=== PATIENT | male | born 1985 | race Caucasian/White ===

== ENCOUNTER 2019-12-06 23:18 | Inpatient (IN) | payer MEDICAID ==
[~2019-12-06] VITALS: Ht 167.6 cm; Wt 83.6 kg
[~2019-12-06 23:18] MED LIST: DEPSPR PO; DOCU50LI; HAL1; LORA-68; TRAZ50TA47; [UNRECOGNIZED DRUG - CODE]
[2019-12-07] MEDS ORDERED: SODIUM CHLORIDE 0.9% 1,000 ML IV ONE (00:58)
[2019-12-07 01:45] LABS: HEMATOCRIT. 36.3 % (42.0-52.0); HEMOGLOBIN. 12.3 g/dL (14.0-18.0); MEAN CORPUSCULAR VOLUME 97.8 fL (80.0-94.0); MEAN PLATELET VOLUME 10.9 fl (7.4-10.4); PLATELET 113 x1000/uL (130-400); RED BLOOD CELL COUNT 3.71 mill/uL (4.7-6.1); RED CELL DISTRIBUTION WIDTH 13.8 % (11.6-14.6)
[2019-12-07 01:50] LABS: CHLORIDE 110 mEq/L (98-107)
[2019-12-07] MEDS ORDERED: OSELTAMIVIR 75MG CAPSULE PO NR (02:45)
[2019-12-07] MEDS ORDERED: LORAZEPAM 2MG/ML CPJ IV ONE (03:00)
[2019-12-07 04:56] LABS: ATYPICAL LYMPHOCYTES 1
[2019-12-07 04:57] LABS: PLATELET ESTIMATE SLIGHTLY DECREASED
[2019-12-07] MEDS ORDERED: IPRATROPIUM/ALBUTEROL 0.5-3(2.5)MG/3ML NEB HHN PRN (06:30)
[2019-12-07] MEDS: METHYLPREDNISOLONE SOD SUCC 40 MG/ML VIAL IV SCH ×3 (08:04→17:35)
[2019-12-07 08:19] LABS: CLARITY URINE CLEAR (CLEAR); COLOR URINE YELLOW (YELLOW); KETONES URINE NEGATIVE (NEGATIVE); LEUKOCYTE ESTERASE URINE NEGATIVE (NEGATIVE); NITRITE URINE NEGATIVE (NEGATIVE); OCCULT BLOOD URINE NEGATIVE (NEGATIVE); PROTEIN URINE TRACE (NEGATIVE); SPECIFIC GRAVITY URINE 1.013 (1.005-1.030)
[2019-12-07 11:00] VITALS: BP 127/78
[2019-12-07 12:13] VITALS: BP 127/78
[2019-12-07] MEDS ORDERED: ACETAMINOPHEN 650MG/20.3ML UDC GT PRN (12:45)
[2019-12-07] MEDS ORDERED: ONDANSETRON HCL 4MG/2ML INJ IV PRN (12:45)
[2019-12-07] MEDS ORDERED: HALOPERIDOL 0.5MG TABLET PO PRN (12:45)
[2019-12-07] MEDS ORDERED: SODIUM CHLORIDE 0.9% 1,000 ML IV SCH (13:00)
[2019-12-07] MEDS: ENOXAPARIN 40MG/0.4ML SYR SUBCUT SCH (13:14)
[2019-12-07] MEDS: SODIUM CHLORIDE 0.45% 1,000 ML IV SCH (13:15)
[2019-12-07 16:35] VITALS: BP 105/58
[2019-12-07] MEDS ORDERED: TRIH2TAB3 PO (16:47)
[2019-12-07] MEDS ORDERED: OMEG-118 PO (16:47)
[2019-12-07] MEDS ORDERED: FLUV150C2 PO (16:47)
[2019-12-07] MEDS ORDERED: FLUO15CR2 TP (16:47)
[2019-12-07] MEDS ORDERED: GEMF600T5 PO (16:47)
[2019-12-07] MEDS ORDERED: HYDR10TA34 PO (16:47)
[2019-12-07] MEDS ORDERED: ATEN-42 PO (16:47)
[2019-12-07] MEDS ORDERED: TOPI100T37 PO (16:47)
[2019-12-07] MEDS ORDERED: FERR325T6 PO (16:47)
[2019-12-07] MEDS ORDERED: CHLO200T9 PO (16:47)
[2019-12-07] MEDS: ATENOLOL 25MG TABLET PO SCH (17:00)
[2019-12-07] MEDS: FERROUS SULFATE 325MG TABLET PO SCH (17:35)
[2019-12-07] MEDS: GEMFIBROZIL 600MG TABLET PO SCH (17:35)
[2019-12-07] MEDS: DOCUSATE SODIUM SUGAR FREE 100MG/10ML UDC PO SCH (17:35)
[2019-12-07] MEDS: TOPIRAMATE 100MG TABLET PO SCH (17:35)
[2019-12-07] MEDS: CHLORPROMAZINE HCL 25 MG TABLET PO SCH (20:00)
[2019-12-07 20:42] VITALS: BP 102/49
[2019-12-07] MEDS: DIVALPROEX SODIUM 125MG EC TABLET PO SCH (21:30)
[2019-12-07] MEDS: TRAZODONE HCL 50MG TABLET PO SCH (21:30)
[2019-12-07] MEDS: HYDROXYZINE 10 MG TABLET PO SCH (21:31)
[2019-12-07] MEDS: FLUOCINONIDE 0.05% CREAM 15GM TOP SCH (21:32)
[2019-12-08] VITALS: BP 107/68
[2019-12-08] MEDS: IPRATROPIUM/ALBUTEROL 0.5-3(2.5)MG/3ML NEB HHN SCH ×6 (00:28→21:29)
[2019-12-08] MEDS: METHYLPREDNISOLONE SOD SUCC 40 MG/ML VIAL IV SCH ×5 (00:35→23:32)
[2019-12-08] MEDS: CHLORPROMAZINE HCL 25 MG TABLET PO SCH ×4 (00:46→21:12)
[2019-12-08 04:00] VITALS: BP 96/61
[2019-12-08] MEDS: SODIUM CHLORIDE 0.45% 1,000 ML IV SCH ×3 (05:04→21:13)
[2019-12-08 07:23] LABS: HEMOGLOBIN. 11.7 g/dL (14.0-18.0); MEAN CORPUSCULAR HEMOGLOBIN 32.8 pg (28.0-32.0); MEAN CORPUSCULAR VOLUME 98.4 fL (80.0-94.0); PLATELET 125 x1000/uL (130-400); RED BLOOD CELL COUNT 3.56 mill/uL (4.7-6.1); RED CELL DISTRIBUTION WIDTH 13.9 % (11.6-14.6)
[2019-12-08 07:37] LABS: CHLORIDE 111 mEq/L (98-107)
[2019-12-08 08:00] VITALS: BP 128/60
[2019-12-08 08:01] LABS: CREATINE KINASE 2582 IU/L (39-308)
[2019-12-08] MEDS ORDERED: TRIHEXYPHENIDYL HCL 2 MG TABLET PO SCH (09:00)
[2019-12-08] MEDS: DIVALPROEX SODIUM 125MG EC TABLET PO SCH ×2 (09:18→21:12)
[2019-12-08] MEDS: HYDROXYZINE 10 MG TABLET PO SCH ×2 (09:18→17:49)
[2019-12-08] MEDS: FERROUS SULFATE 325MG TABLET PO SCH (09:18)
[2019-12-08] MEDS: TOPIRAMATE 100MG TABLET PO SCH ×2 (09:18→17:49)
[2019-12-08] MEDS: GEMFIBROZIL 600MG TABLET PO SCH ×2 (09:18→17:00)
[2019-12-08] MEDS: ATENOLOL 25MG TABLET PO SCH ×2 (09:19→17:50)
[2019-12-08] MEDS: FLUOCINONIDE 0.05% CREAM 15GM TOP SCH ×2 (09:20→21:00)
[2019-12-08] MEDS: FISH OIL/OMEGA-3 FATTY ACIDS 1000MG CAPSULE PO SCH (09:20)
[2019-12-08] MEDS: DOCUSATE SODIUM SUGAR FREE 100MG/10ML UDC PO SCH ×3 (09:21→17:48)
[2019-12-08 09:23] LABS: BG BASE EXCESS -6.9 mmol/L (-2.0-2.0); BG CARBOXYHEMOGLOBIN 1.4 % (0.5-1.5); BG DEOXYHEMOGLOBIN 6.1 % (0.0-5.0); BG FRACTION INSPIRED OXYGEN 21; BG HCO3 ACT 16.5 mmol/L (22.0-26.0); BG METHEMOGLOBIN 0.3 % (0.0-1.5); BG OXYGEN SATURATION 93.8 % (92.0-98.5); BG OXYHEMOGLOBIN 92.2 % (94.0-97.0); BG PCO2 27.3 mmHg (35.0-45.0); BG SAMPLE SITE RIGHT BRACHIAL; BG TOTAL HEMOGLOBIN 11.7 g/dL (12.0-18.0); BG VENT MODE ROOM AIR
[2019-12-08] MEDS: CITRIC ACID/SODIUM CITRATE SOLN 30ML UDC PO SCH ×3 (10:00→17:48)
[2019-12-08 12:00] VITALS: BP 112/63
[2019-12-08] MEDS: ENOXAPARIN 40MG/0.4ML SYR SUBCUT SCH (14:31)
[2019-12-08 15:13] LABS: PLATELET ESTIMATE NORMAL
[2019-12-08 16:00] VITALS: BP 115/62
[2019-12-08 20:00] VITALS: BP 120/71
[2019-12-08] MEDS: LUVOX 100 MG PO SCH (20:50)
[2019-12-08] MEDS: TRAZODONE HCL 50MG TABLET PO SCH (21:12)
[2019-12-09] VITALS: BP 123/81
[2019-12-09] MEDS: IPRATROPIUM/ALBUTEROL 0.5-3(2.5)MG/3ML NEB HHN SCH ×6 (01:00→20:53)
[2019-12-09] MEDS: SODIUM CHLORIDE 0.45% 1,000 ML IV SCH ×2 (03:01→12:14)
[2019-12-09 04:00] VITALS: BP 116/70
[2019-12-09] MEDS: METHYLPREDNISOLONE SOD SUCC 40 MG/ML VIAL IV SCH ×4 (06:14→23:53)
[2019-12-09 07:43] LABS: BASOPHILS % 0.1 % (0.0-2.0); HEMOGLOBIN. 10.9 g/dL (14.0-18.0); LYMPHOCYTES % 9.2 % (20.0-50.0); MEAN CORPUSCULAR HEMOGLOBIN 33.2 pg (28.0-32.0); MEAN CORPUSCULAR VOLUME 97.6 fL (80.0-94.0); MEAN PLATELET VOLUME 10.8 fl (7.4-10.4); MONOCYTES % 11.5 % (2.0-8.0); NEUTROPHILS % 79.2 % (40.0-76.0); PLATELET 159 x1000/uL (130-400); RED BLOOD CELL COUNT 3.28 mill/uL (4.7-6.1); RED CELL DISTRIBUTION WIDTH 13.8 % (11.6-14.6)
[2019-12-09 07:53] LABS: CHLORIDE 116 mEq/L (98-107)
[2019-12-09 08:00] VITALS: BP 136/76
[2019-12-09 08:04] LABS: CREATINE KINASE 871 IU/L (39-308)
[2019-12-09] MEDS: HYDROXYZINE 10 MG TABLET PO SCH ×2 (09:04→17:04)
[2019-12-09] MEDS: CITRIC ACID/SODIUM CITRATE SOLN 30ML UDC PO SCH ×3 (09:04→17:04)
[2019-12-09] MEDS: DOCUSATE SODIUM SUGAR FREE 100MG/10ML UDC PO SCH ×2 (09:04→17:04)
[2019-12-09] MEDS: FISH OIL/OMEGA-3 FATTY ACIDS 1000MG CAPSULE PO SCH (09:04)
[2019-12-09] MEDS: FLUOCINONIDE 0.05% CREAM 15GM TOP SCH ×2 (09:04→21:37)
[2019-12-09] MEDS: DIVALPROEX SODIUM 125MG EC TABLET PO SCH ×2 (09:04→21:40)
[2019-12-09] MEDS: TOPIRAMATE 100MG TABLET PO SCH ×2 (09:05→17:04)
[2019-12-09] MEDS: FERROUS SULFATE 325MG TABLET PO SCH (09:05)
[2019-12-09] MEDS: GEMFIBROZIL 600MG TABLET PO SCH ×2 (09:05→17:05)
[2019-12-09] MEDS: ATENOLOL 25MG TABLET PO SCH ×2 (09:05→17:05)
[2019-12-09 12:00] VITALS: BP 131/79
[2019-12-09] MEDS: ENOXAPARIN 40MG/0.4ML SYR SUBCUT SCH (12:14)
[2019-12-09] MEDS: CHLORPROMAZINE HCL 25 MG TABLET PO SCH ×2 (13:58→21:38)
[2019-12-09 16:00] VITALS: BP 151/82
[2019-12-09 20:00] VITALS: BP 124/71
[2019-12-09] MEDS: LUVOX 100 MG PO SCH (21:37)
[2019-12-09] MEDS: TRAZODONE HCL 50MG TABLET PO SCH (21:37)
[2019-12-10 00:21] VITALS: BP 119/58
[2019-12-10] MEDS: IPRATROPIUM/ALBUTEROL 0.5-3(2.5)MG/3ML NEB HHN SCH ×5 (00:35→16:21)
[2019-12-10 04:00] VITALS: BP 120/74
[2019-12-10] MEDS: METHYLPREDNISOLONE SOD SUCC 40 MG/ML VIAL IV SCH ×3 (05:43→17:54)
[2019-12-10] MEDS: CHLORPROMAZINE HCL 25 MG TABLET PO SCH ×2 (06:00→14:16)
[2019-12-10 07:40] LABS: FERRITIN 1094 ng/mL (22-322)
[2019-12-10 07:51] LABS: HEPATITIS B SURFACE ANTIGEN NEGATIVE
[2019-12-10 07:56] LABS: HEMOGLOBIN. 11.4 g/dL (14.0-18.0); MEAN CORPUSCULAR HEMOGLOBIN 33.2 pg (28.0-32.0); MEAN CORPUSCULAR VOLUME 98.5 fL (80.0-94.0); MEAN PLATELET VOLUME 10.2 fl (7.4-10.4); PLATELET 234 x1000/uL (130-400); RED BLOOD CELL COUNT 3.45 mill/uL (4.7-6.1); RED CELL DISTRIBUTION WIDTH 14.1 % (11.6-14.6)
[2019-12-10 08:00] VITALS: BP 107/64
[2019-12-10 08:05] LABS: CHLORIDE 115 mEq/L (98-107)
[2019-12-10 08:08] LABS: VITAMIN B12 SERUM 748 pg/mL (211-911)
[2019-12-10 08:12] LABS: TOTAL IRON BINDING CAPACITY 241 ug/dL (250-450)
[2019-12-10 08:17] LABS: CREATINE KINASE 338 IU/L (39-308)
[2019-12-10 08:20] LABS: HEPATITIS A AB IGM NEGATIVE (NEGATIVE)
[2019-12-10] MEDS: ATENOLOL 25MG TABLET PO SCH ×2 (09:00→17:00)
[2019-12-10] MEDS: DIVALPROEX SODIUM 125MG EC TABLET PO SCH (09:45)
[2019-12-10] MEDS: FISH OIL/OMEGA-3 FATTY ACIDS 1000MG CAPSULE PO SCH (09:45)
[2019-12-10] MEDS: DOCUSATE SODIUM SUGAR FREE 100MG/10ML UDC PO SCH ×2 (09:45→17:00)
[2019-12-10] MEDS: FLUOCINONIDE 0.05% CREAM 15GM TOP SCH (09:45)
[2019-12-10] MEDS: HYDROXYZINE 10 MG TABLET PO SCH ×2 (09:45→17:54)
[2019-12-10] MEDS: CITRIC ACID/SODIUM CITRATE SOLN 30ML UDC PO SCH ×3 (09:45→17:54)
[2019-12-10] MEDS: FERROUS SULFATE 325MG TABLET PO SCH (09:45)
[2019-12-10] MEDS: GEMFIBROZIL 600MG TABLET PO SCH ×2 (09:46→17:54)
[2019-12-10] MEDS: TOPIRAMATE 100MG TABLET PO SCH ×2 (09:48→17:54)
[2019-12-10] MEDS ORDERED: PANTOPRAZOLE SODIUM 40 MG/VIAL IV SCH (11:30)
[2019-12-10] MEDS ORDERED: GUAIFENESIN 600MG ER TABLET PO SCH ×2 (11:45→21:00)
[2019-12-10 12:00] VITALS: BP 108/65
[2019-12-10] MEDS: ENOXAPARIN 40MG/0.4ML SYR SUBCUT SCH (12:50)
[2019-12-10 15:52] VITALS: BP_SYST 108; BP_SYST 113; BP_DIAS 65; BP_DIAS 72
[2019-12-10 16:00] VITALS: BP 113/72
[2019-12-10 16:26] LABS: PLATELET ESTIMATE NORMAL
== END 2019-12-10 18:30 | disposition home or self-care (01) | DRG 145 ==
LOC: ER 23:46 → 6WST 12-07 02:35 → ENRESERV 12-07 09:46
PROVIDERS: ADMIT Internal Medicine; ATTEND Internal Medicine
DX: J20.9 Acute bronchitis, unspecified (principal); N17.0 Acute kidney failure with tubular necrosis; D69.6 Thrombocytopenia, unspecified; M62.82 Rhabdomyolysis; R16.1 Splenomegaly, not elsewhere classified; E44.1 Mild protein-calorie malnutrition; D53.9 Nutritional anemia, unspecified; D72.825 Bandemia; E78.5 Hyperlipidemia, unspecified; F31.9 Bipolar disorder, unspecified; R74.0 Nonspecific elevation of levels of transaminase and lactic acid dehydrogenase [LDH]; R62.50 Unspecified lack of expected normal physiological development in childhood; E78.00 Pure hypercholesterolemia, unspecified; G40.909 Epilepsy, unspecified, not intractable, without status epilepticus; Z79.899 Other long term (current) drug therapy
CPT/HCPCS: 36415; 36600; 71045; 76700; 80048; 80053; 80076; 81003; 82375; 82550; 82607; 82728; 82746; 82805; 83540; 83550; 83880; 84484; 85025; 86705; 86709; 86803; 87340; 87804; 92610; 93005; 93970; 94640; 99285; C9113; J1650; J2060; J2920; J7030; Q0161

== ENCOUNTER 2019-12-13 14:02 | Inpatient (IN) | payer MEDICAID ==
[~2019-12-13] VITALS: Ht 172.7 cm; Wt 80.7 kg
[~2019-12-13 14:02] MED LIST changes: +ATEN-42 PO; +CHLO200T9 PO; -DOCU50LI; +FERR325T6 PO; +FLUO15CR2 TP; +FLUV150C2 PO; +GEMF600T5 PO; +HYDR10TA34 PO; -LORA-68; +OMEG-118 PO; +TOPI100T37 PO; -TRAZ50TA47; +TRIH2TAB3 PO; -[UNRECOGNIZED DRUG - CODE]
[2019-12-13 21:37] LABS: HEMATOCRIT. 37.3 % (42.0-52.0); HEMOGLOBIN. 13.3 g/dL (14.0-18.0); MEAN CORPUSCULAR HEMOGLOBIN 34.6 pg (28.0-32.0); MEAN CORPUSCULAR VOLUME 97.2 fL (80.0-94.0); MEAN PLATELET VOLUME 9.2 fl (7.4-10.4); PLATELET 351 x1000/uL (130-400); RED BLOOD CELL COUNT 3.84 mill/uL (4.7-6.1); RED CELL DISTRIBUTION WIDTH 13.9 % (11.6-14.6)
[2019-12-13 21:43] LABS: CHLORIDE 102 mEq/L (98-107)
[2019-12-13 21:48] LABS: ETHANOL BLOOD < 10 mg/dL
[2019-12-13 22:26] LABS: PLATELET ESTIMATE NORMAL
[2019-12-13] MEDS ORDERED: CEFEPIME HCL 2000MG/VIAL INJ IV ONE (23:45)
[2019-12-13] MEDS ORDERED: SODIUM CHLORIDE 0.9% 1,000 ML IV ONE (23:45)
[2019-12-13] MEDS ORDERED: CEFEPIME 2,000 MG in DEXT 5% WATER 100 ML IV NR (23:45)
[2019-12-14] VITALS (8 sets, daily range): BP systolic 106–124; BP diastolic 56–79
[2019-12-14] MEDS ORDERED: AZITHROMYCIN 500 MG in DEXT 5% WATER 250 ML IV SCH (01:30)
[2019-12-14] MEDS ORDERED: IOHEXOL-300 100 ML BOTTLE ONE (01:39)
[2019-12-14] MEDS ORDERED: SODIUM CHLORIDE 0.9% 1,000 ML IV ONE (03:00)
[2019-12-14 05:47] LABS: CLARITY URINE CLEAR (CLEAR); COLOR URINE YELLOW (YELLOW); KETONES URINE NEGATIVE (NEGATIVE); LEUKOCYTE ESTERASE URINE NEGATIVE (NEGATIVE); NITRITE URINE NEGATIVE (NEGATIVE); OCCULT BLOOD URINE NEGATIVE (NEGATIVE); PROTEIN URINE NEGATIVE (NEGATIVE); SPECIFIC GRAVITY URINE 1.016 (1.005-1.030); UROBILINOGEN URINE 0.2 E.U./dL (0.2-1.0)
[2019-12-14 06:21] LABS: *AMPHETAMINES SCREEN URINE NEGATIVE (NEGATIVE); *BARBITURATES SCREEN URINE NEGATIVE (NEGATIVE); *BENZODIAZEPINES SCREEN URINE NEGATIVE (NEGATIVE); *COCAINE SCREEN URINE NEGATIVE (NEGATIVE); CANNABINOID URINE SCREEN NEGATIVE (NEGATIVE); METHADONE URINE SCREEN NEGATIVE (NEGATIVE); OPIATES URINE SCREEN NEGATIVE (NEGATIVE); PHENCYCLIDINE URINE SCREEN NEGATIVE (NEGATIVE)
[2019-12-14 08:02] LABS: BG BASE EXCESS -4.1 mmol/L (-2.0-2.0); BG CARBOXYHEMOGLOBIN 1.3 % (0.5-1.5); BG DEOXYHEMOGLOBIN 2.6 % (0.0-5.0); BG FRACTION INSPIRED OXYGEN 28; BG HCO3 ACT 20.1 mmol/L (22.0-26.0); BG METHEMOGLOBIN 0.3 % (0.0-1.5); BG OXYGEN SATURATION 97.4 % (92.0-98.5); BG OXYHEMOGLOBIN 95.8 % (94.0-97.0); BG PCO2 34.2 mmHg (35.0-45.0); BG PH 7.388 (7.350-7.450); BG PO2 100.4 mmHg (75.0-100.0); BG SAMPLE SITE RIGHT RADIAL; BG TOTAL HEMOGLOBIN 12.9 g/dL (12.0-18.0); BG VENT MODE NASAL CANNULA
[2019-12-14] MEDS ORDERED: HYDROCODONE/ACETAMINOPHEN 5/325MG TABLET PO PRN (10:30)
[2019-12-14] MEDS ORDERED: LORAZEPAM 0.5MG TABLET PO PRN (10:30)
[2019-12-14] MEDS ORDERED: CLONIDINE 0.1MG TABLET PO PRN (10:30)
[2019-12-14] MEDS ORDERED: ONDANSETRON HCL 4MG/2ML INJ IV PRN (10:30)
[2019-12-14] MEDS ORDERED: IPRATROPIUM/ALBUTEROL 0.5-3(2.5)MG/3ML NEB HHN PRN (10:30)
[2019-12-14] MEDS ORDERED: GUAIFENESIN 200MG/10ML SUGAR FREE UDC PO PRN (10:30)
[2019-12-14] MEDS ORDERED: DOCUSATE SODIUM 100MG CAPSULE PO PRN (10:30)
[2019-12-14] MEDS ORDERED: ACETAMINOPHEN 325MG TABLET PO PRN (10:30)
[2019-12-14] MEDS: SODIUM CHLORIDE 0.9% 1,000 ML IV SCH ×2 (12:55→21:33)
[2019-12-14] MEDS: PIPERACILLIN/TAZOBACTAM 3.375 G in DEXT 5% WATER 100 ML IV SCH ×3 (13:28→23:31)
[2019-12-14] MEDS ORDERED: PIPERACILLIN/TAZOBACTAM 3.375 G/VIAL IV SCH (14:00)
[2019-12-14] MEDS: TOPIRAMATE 100MG TABLET PO SCH (16:56)
[2019-12-14] MEDS: HYDROXYZINE 10 MG TABLET PO SCH (16:56)
[2019-12-14] MEDS: TRIHEXYPHENIDYL HCL 2 MG TABLET PO SCH (16:56)
[2019-12-14 17:49] LABS: PHOSPHORUS 2.9 mg/dL (2.5-4.9)
[2019-12-14] MEDS: DIVALPROEX SODIUM 250MG DR TABLET PO SCH (21:33)
[2019-12-14] MEDS: FLUVOXAMINE MALEATE 100 MG PO SCH (21:34)
[2019-12-14 23:10] LABS: FOLIC ACID (FOLATE) SERUM 17.3 ng/mL (>5.38)
[2019-12-15] VITALS (12 sets, daily range): BP systolic 94–128; BP diastolic 59–79
[2019-12-15] MEDS: PIPERACILLIN/TAZOBACTAM 3.375 G in DEXT 5% WATER 100 ML IV SCH ×3 (06:12→17:12)
[2019-12-15 06:18] LABS: CHLORIDE 114 mEq/L (98-107)
[2019-12-15 06:42] LABS: HEMATOCRIT. 32.6 % (42.0-52.0); MEAN CORPUSCULAR HEMOGLOBIN 32.9 pg (28.0-32.0); MEAN CORPUSCULAR VOLUME 97.6 fL (80.0-94.0); MEAN PLATELET VOLUME 9.3 fl (7.4-10.4); PLATELET 270 x1000/uL (130-400); RED BLOOD CELL COUNT 3.34 mill/uL (4.7-6.1); RED CELL DISTRIBUTION WIDTH 13.9 % (11.6-14.6)
[2019-12-15] MEDS: TOPIRAMATE 100MG TABLET PO SCH ×2 (09:56→17:12)
[2019-12-15] MEDS: TRIHEXYPHENIDYL HCL 2 MG TABLET PO SCH ×2 (09:56→17:12)
[2019-12-15] MEDS: DIVALPROEX SODIUM 250MG DR TABLET PO SCH ×2 (09:57→20:29)
[2019-12-15] MEDS: HYDROXYZINE 10 MG TABLET PO SCH ×2 (09:57→17:12)
[2019-12-15] MEDS: SODIUM CHLORIDE 0.45% 1,000 ML IV SCH ×2 (09:57→09:58)
[2019-12-15] MEDS: IRON SUCROSE COMPLEX 100 MG/5 ML ML IV SCH (14:25)
[2019-12-15] MEDS: AZITHROMYCIN 500 MG in DEXT 5% WATER 250 ML IV SCH (15:46)
[2019-12-15 18:18] LABS: PLATELET ESTIMATE NORMAL
[2019-12-15] MEDS: FLUVOXAMINE MALEATE 100 MG PO SCH (20:01)
[2019-12-16] VITALS (8 sets, daily range): BP systolic 103–129; BP diastolic 65–83
[2019-12-16] MEDS: PIPERACILLIN/TAZOBACTAM 3.375 G in DEXT 5% WATER 100 ML IV SCH ×4 (00:25→18:37)
[2019-12-16 06:57] LABS: CHLORIDE 111 mEq/L (98-107)
[2019-12-16 07:25] LABS: HEMATOCRIT. 33.7 % (42.0-52.0); HEMOGLOBIN. 11.3 g/dL (14.0-18.0); MEAN CORPUSCULAR HEMOGLOBIN 32.8 pg (28.0-32.0); MEAN CORPUSCULAR VOLUME 97.4 fL (80.0-94.0); MEAN PLATELET VOLUME 9.4 fl (7.4-10.4); PLATELET 303 x1000/uL (130-400); RED BLOOD CELL COUNT 3.46 mill/uL (4.7-6.1); RED CELL DISTRIBUTION WIDTH 13.7 % (11.6-14.6)
[2019-12-16] MEDS: TOPIRAMATE 100MG TABLET PO SCH ×2 (10:28→18:37)
[2019-12-16] MEDS: TRIHEXYPHENIDYL HCL 2 MG TABLET PO SCH ×2 (10:28→18:45)
[2019-12-16] MEDS: DIVALPROEX SODIUM 250MG DR TABLET PO SCH ×2 (10:28→21:02)
[2019-12-16] MEDS: IRON SUCROSE COMPLEX 100 MG/5 ML ML IV SCH (10:29)
[2019-12-16] MEDS: HYDROXYZINE 10 MG TABLET PO SCH ×2 (10:37→18:37)
[2019-12-16] MEDS: AZITHROMYCIN 500 MG in DEXT 5% WATER 250 ML IV SCH (18:37)
[2019-12-16] MEDS: FLUVOXAMINE MALEATE 100 MG PO SCH (21:02)
[2019-12-17] VITALS: BP 116/70
[2019-12-17] MEDS: PIPERACILLIN/TAZOBACTAM 3.375 G in DEXT 5% WATER 100 ML IV SCH ×3 (00:36→15:39)
[2019-12-17 04:13] VITALS: BP 108/72
[2019-12-17 06:35] LABS: HEMATOCRIT. 33.9 % (42.0-52.0); HEMOGLOBIN. 11.3 g/dL (14.0-18.0); MEAN CORPUSCULAR VOLUME 99.1 fL (80.0-94.0); MEAN PLATELET VOLUME 9.3 fl (7.4-10.4); PLATELET 317 x1000/uL (130-400); RED BLOOD CELL COUNT 3.42 mill/uL (4.7-6.1); RED CELL DISTRIBUTION WIDTH 14.1 % (11.6-14.6)
[2019-12-17 06:51] LABS: CHLORIDE 111 mEq/L (98-107)
[2019-12-17] MEDS ORDERED: AZITHROMYCIN 500 MG TABLET PO SCH (09:00)
[2019-12-17] MEDS: HYDROXYZINE 10 MG TABLET PO SCH ×2 (09:12→17:43)
[2019-12-17] MEDS: DIVALPROEX SODIUM 250MG DR TABLET PO SCH (09:12)
[2019-12-17] MEDS: TRIHEXYPHENIDYL HCL 2 MG TABLET PO SCH ×2 (09:12→17:00)
[2019-12-17] MEDS: TOPIRAMATE 100MG TABLET PO SCH ×2 (09:12→17:43)
[2019-12-17] MEDS ORDERED: AZIT500T8 PO (12:01)
[2019-12-17] MEDS ORDERED: AMOX1TAB16 MT (12:01)
[2019-12-17 13:44] LABS: PLATELET ESTIMATE NORMAL
[2019-12-17 14:10] VITALS: BP 111/76
[2019-12-17 16:47] VITALS: BP 18/115
[2019-12-17 16:58] VITALS: BP 115/77
== END 2019-12-17 17:58 | disposition home or self-care (01) | DRG 720 ==
LOC: ER 14:02 → 5EST 12-14 02:58 → EDBEDREQDT 12-14 03:03 → EDBEDREQ 12-14 03:03 → EDBEDREQSVC 12-14 03:03 → EDBEDREQTM 12-14 03:03 → ENRESERV 12-14 07:38 → 5WST 12-17 14:26
PROVIDERS: ADMIT Internal Medicine; ATTEND Internal Medicine
DX: A41.9 Sepsis, unspecified organism (principal); R65.21 Severe sepsis with septic shock; E43 Unspecified severe protein-calorie malnutrition; N17.9 Acute kidney failure, unspecified; J18.9 Pneumonia, unspecified organism; D72.821 Monocytosis (symptomatic); E87.1 Hypo-osmolality and hyponatremia; D53.9 Nutritional anemia, unspecified; F31.9 Bipolar disorder, unspecified; D50.9 Iron deficiency anemia, unspecified; R73.9 Hyperglycemia, unspecified; R74.0 Nonspecific elevation of levels of transaminase and lactic acid dehydrogenase [LDH]; E78.5 Hyperlipidemia, unspecified; G40.909 Epilepsy, unspecified, not intractable, without status epilepticus; J32.0 Chronic maxillary sinusitis; R29.6 Repeated falls; S00.81XA Abrasion of other part of head, initial encounter; W18.30XA Fall on same level, unspecified, initial encounter; Y93.89 Activity, other specified; Y92.89 Other specified places as the place of occurrence of the external cause; Y99.8 Other external cause status; Z68.27 Body mass index [BMI] 27.0-27.9, adult
CPT/HCPCS: 36415; 36600; 71045; 72170; 74177; 80048; 80053; 80076; 80305; 80320; 81003; 82375; 82550; 82607; 82728; 82746; 82805; 83036; 83540; 83550; 83605; 83735; 84100; 84484; 85025; 85651; 86140; 87804; 93005; 99285; J0456; J0692; J2543; J7030; J7060; Q9967; G0480

== ENCOUNTER 2020-07-05 | Emergency (ER) | payer MEDICAID ==
[~2020-07-05] VITALS: Ht 170.2 cm; Wt 73.0 kg
[~2020-07-05] MED LIST changes: +AMOX1TAB16 MT; +AZIT500T8 PO
[2020-07-05] MEDS ORDERED: LIDOCAINE HCL/EPINEPHRINE 1%-EPI 1:100,000 20 ML VIAL INFIL ONE (00:45)
[2020-07-05] MEDS ORDERED: HYDROCODONE/ACETAMINOPHEN 5/325MG TABLET PO ONE (01:15)
[2020-07-05 02:20] VITALS: BP 105/61
== END 2020-07-05 03:36 | disposition home or self-care (01) ==
LOC: ER 00:07
DX: S82.401A Unspecified fracture of shaft of right fibula, initial encounter for closed fracture (principal); S01.111A Laceration without foreign body of right eyelid and periocular area, initial encounter; I10 Essential (primary) hypertension; Z79.899 Other long term (current) drug therapy; X58.XXXA Exposure to other specified factors, initial encounter; Y93.89 Activity, other specified; Y92.89 Other specified places as the place of occurrence of the external cause; Y99.8 Other external cause status
CPT/HCPCS: 12011; 73610; 73630; 99284; J3490

== ENCOUNTER 2020-07-24 09:37 | Emergency (ER) | payer MEDICAID ==
[~2020-07-24] VITALS: Ht 172.7 cm; Wt 70.0 kg
[2020-07-24] MEDS ORDERED: MORPHINE SULFATE 4 MG/ML CPJ (NOT FOR IM USE) IV STA (10:06)
[2020-07-24] MEDS ORDERED: ONDANSETRON HCL 4MG/2ML INJ IV STA (10:06)
[2020-07-24] MEDS ORDERED: MEROPENEM 1,000 MG in SODIUM CHLORIDE 0.9% 100 ML IV STA (10:09)
[2020-07-24] MEDS ORDERED: PIPERACILLIN/TAZ 3.375G PREMIX 50 ML IV ONE (10:15)
[2020-07-24] MEDS ORDERED: CLINDAMYCIN 600 MG in DEXTROSE 5% WATER 50 ML IV ONE (10:15)
[2020-07-24] MEDS ORDERED: SODIUM CHLORIDE 0.9% 1000ML BAG (SEPSIS BOLUS) IV ONE (10:15)
[2020-07-24] MEDS ORDERED: CLINDAMYCIN 600 MG in SODIUM CHLORIDE 0.9% 50 ML IV ONE (10:15)
[2020-07-24 10:25] LABS: BASOPHILS % 0.5 % (0.0-2.0); EOSINOPHILS % 2.1 % (0.0-5.0); HEMOGLOBIN. 13.1 g/dL (14.0-18.0); LYMPHOCYTES % 19.1 % (20.0-50.0); MEAN CORPUSCULAR HEMOGLOBIN 34.3 pg (28.0-32.0); MEAN CORPUSCULAR VOLUME 101.8 fL (80.0-94.0); MEAN PLATELET VOLUME 9.5 fl (7.4-10.4); MONOCYTES % 9.7 % (2.0-8.0); NEUTROPHILS % 68.6 % (40.0-76.0); PLATELET 329 x1000/uL (130-400); RED BLOOD CELL COUNT 3.83 mill/uL (4.7-6.1)
[2020-07-24 10:36] LABS: CHLORIDE 112 mEq/L (98-107)
[2020-07-24 10:43] LABS: INR 1.1
[2020-07-24 12:04] LABS: CLARITY URINE CLEAR (CLEAR); COLOR URINE YELLOW (YELLOW); KETONES URINE NEGATIVE (NEGATIVE); LEUKOCYTE ESTERASE URINE NEGATIVE (NEGATIVE); NITRITE URINE NEGATIVE (NEGATIVE); OCCULT BLOOD URINE NEGATIVE (NEGATIVE); PH URINE 6.5 (4.5-8.0); PROTEIN URINE NEGATIVE (NEGATIVE); SPECIFIC GRAVITY URINE 1.016 (1.005-1.030)
[2020-07-24] MEDS ORDERED: SODIUM CHLORIDE 0.9% 1,000 ML IV ONE (13:51)
[2020-07-25] MEDS ORDERED: PIPERACILLIN SODIUM/TAZOBACTAM 4.5 G in DEXT 5% WATER 100 ML IV SCH ×2 (04:15→05:00)
[2020-07-25] MEDS ORDERED: MORPHINE SULFATE 4 MG/ML CPJ (NOT FOR IM USE) IV STA (05:05)
[2020-07-25] MEDS ORDERED: ONDANSETRON HCL 4MG/2ML INJ IV STA (05:05)
[2020-07-25] MEDS ORDERED: LORAZEPAM 2MG/ML CPJ IV ONE (05:15)
[2020-07-25] MEDS: PIPERACILLIN/TAZ 3.375G PREMIX 50 ML IV SCH ×2 (11:23→18:01)
[2020-07-25 20:30] VITALS: BP 135/77
== END 2020-07-25 21:44 | disposition short-term general hospital (02) ==
LOC: ER 10:14
DX: R65.20 Severe sepsis without septic shock (principal); I96 Gangrene, not elsewhere classified; L03.115 Cellulitis of right lower limb; S82.891S Other fracture of right lower leg, sequela; X58.XXXS Exposure to other specified factors, sequela; F84.0 Autistic disorder
CPT/HCPCS: 36415; 71045; 73610; 73630; 73718; 80053; 81003; 83605; 83880; 84145; 84484; 85025; 85610; 86140; 87040; 87086; 93005; 96365; 96367; 96368; 96375; 96376; 99291; J2060; J2185; J2270; J2405; J2543; J3490; J7030; J7050; J7060